=== PATIENT | male | born 1965 | race Caucasian/White ===

== ENCOUNTER 2017-11-22 01:37 | Inpatient (IN) | payer OTHER ==
[~2017-11-22] VITALS: Ht 172.7 cm; Wt 105.8 kg
[~2017-11-22 01:37] MED LIST: LISINOPRIL20 M1 PO; PRAZOSIN HCL1 M1 PO; TRINTELLIX5 MG PO; ZYRTEC10 M3 PO
[2017-11-22] MEDS ORDERED: ASPIRIN EC81 M1 PO (09:11)
[2017-11-22] MEDS ORDERED: MS CONTIN15 M3 PO (09:11)
[2017-11-22] MEDS ORDERED: DILAUDID2 M1 PO (09:11)
[2017-11-22] MEDS ORDERED: ASPIRIN81 M4 PO (09:11)
--- NOTE | 2017-11-22 09:27 | Patient Discharge Instructions ---
Discharge Instructions General Discharge Information You were seen/treated for: osteoarthritis right hip You had these procedures: total hip replacement with drain placement Watch for these problems: Increasing redness, warmth or swelling Drainage of any type from incision Inability to bear weight on operative leg Persistent nausea and vomiting Fever greater than 101.5 degrees Call Surgeon to remove: Julienne Do not soak the wound: No Daily wet to dry dressings: No No bath, but you may shower: Yes (keep wound clean and dry) Other wound care: Please keep wound clean and dry. No ointments or lotions of any type on or near incision. Your dressing will be changed by your nurse on the second day after your surgery. Daily dry dressing changes are recommended each day thereafter. Do not soak your wound- no tub baths/swimming. You may shower 48hr after surgery. Special Instructions: Miralax each day. Discontinue this medication if you develop loose stool or diarrhea. If you wish to continue this medication, it is available over the counter. If Aspirin: You are taking this medication to help prevent blood clot formation. Please take with food to protect your stomach lining. Please take as directed. Constipation: Pain medication can cause constipation. It is recommended that you take Colace and you are unable to move your bowels or unable to pass gas and are developing bloating, nausea, or vomiting as a result, please contact your doctor. Coumadin (warfarin): You are taking this medication to help prevent the development of blood clots. The daily dose is subject to change. It is based on labwork called INR which will be tested at a minimum of two times per week. The office will instruct you as to how much Coumadin you are to be taking. Please be sure to have communicated with the office regarding your doses prior to taking. use assistive devices as needed Diet Continue normal diet: Yes Activity Full Activity/No Limits: No (no strenuous activity) Activity Self Limited: Yes Activity Limited to: Weight bear as tolerated Acute Coronary Syndrome Inclusion Criteria At DC or during hospital stay patient has or had the following: ACS DIAGNOSIS No Discharge Core Measures Meds if any: Prescribed or Continued at Discharge NARCISA/ARB if EF <40% No Aspirin No Beta-Milo No Statin No Meds if any: NOT Prescribed or Continued at Discharge No NARCISA/ARB d/t Allergy Exists Congestive Heart Failure Inclusion Criteria At DC or during hospital stay patient has or had the following: CHF DIAGNOSIS No Discharge Core Measures Meds if any: Prescribed or Continued at Discharge Meds if any: NOT Prescribed or Continued at Discharge Cerebrovascular accident Inclusion Criteria At DC or during hospital stay patient has or had the following: CVA/TIA Diagnosis No Discharge Core Measures Meds if any: Prescribed or Continued at Discharge Meds if any: NOT Prescribed or Continued at Discharge Venous thromboembolism Inclusion Criteria VTE Diagnosis No VTE Type NONE VTE Confirmed by (Test) NONE Discharge Core Measures - Per Current guidelines, there needs to be overlap - treatment for the first 5 days of Warfarin therapy. - If discharged on Warfarin prior to 5 days of - overlap therapy, the patient will need to be - assessed for post discharge needs including - *Post discharge parental anticoagulation - *Warfarin and/or parental anticoagulation education - *Follow up date to check INR post discharge At least 5 days overlap therapy as Inpatient No Meds if any: Prescribed or Continued at Discharge Note: Overlap Therapy is Warfarin and Anticoagulant Meds if any: NOT Prescribed or Continued at Discharge
[2017-11-22] MEDS ORDERED: PROTONIX20 M1 PO (09:40)
[2017-11-22] MEDS ORDERED: MIRALAX17 G1 PO (09:40)
[2017-11-22] MEDS ORDERED: COLACE100 M1 PO (09:40)
--- NOTE | 2017-11-22 09:51 | Surg Short-stay <48hrs Dis Sum ---
See Addendum Visit Information Visit Dates Admission Date: 11/22/17 Discharge Date: 11/23/17 Surgical Short Stay DC Summary Admission Diagnosis: right hip osteoarthritis Final Diagnosis: right hip osteoarthritis Procedure(s): right total hip arhtroplasty Summary/Significant Findings: 52 y/o male S/P right JACKI 11/22/[address] Shrestha. Patient tolarated the procedure well and was transferred to PACU for short postop stay. He had an interoperative blood loss of approx 600cc. A drain was placed for prevention of hematoma. He was transferred to a general surgical floor. His diet was advanced and tolerated. His vital signs remained stable and within normal limits. His pain was controlled with po medications. He voided spontaneously. He was evaluated and treated by physical therapy. He was deemed appropriate for discharge to home with [facility]. Condition at Discharge: stable Discharge Disposition: home health services Discharge instructions provided to patient/family: Yes Post discharge follow-up plan: follow-up with office in 6 weeks Copies to: Yousif Shrestha MD
--- NOTE | 2017-11-22 11:35 | RADIOLOGY REPORT ---
EXAMINATION: XR HIP, RIGHT CLINICAL INFORMATION: Patient in PACU. Right hip osteoarthritis. Postoperative assessment status post right hip arthroplasty. COMPARISON: None TECHNIQUE: Two views of the right hip. FINDINGS: Evaluation on the lateral view is limited due to overlapping soft tissues. The hip joint is not adequately visualized on the lateral view. On the images available, alignment of the total right hip arthroplasty is anatomic with no evidence of hardware failure or ely shoshone bone fracture seen. A soft tissue drain is in place and some subcutaneous emphysema is noted. IMPRESSION: Anatomic alignment of the total right hip arthroplasty is seen with no definite hardware failure or ely shoshone bone fracture seen.
[2017-11-22 12:00] VITALS: BP 90/60
--- NOTE | 2017-11-22 12:41 | Admission Core Measures ---
Acute Coronary Syndrome (CM) ACS Core Measures Acute Coronary Syndrome Diagnosis No Congestive Heart Failure (NEW) CHF Core Measures Congestive Heart Failure Diagnosis No Cerebrovascular Accident (NEW) CVA Core Measures CVA/TIA Diagnosis No Venous Thromboembolism VTE Core Benita (View Protocol) VTE Risk Factors Surgery No Mechanical VTE Prophylaxis d/t N/A MechProphylax Ordered No VTE Pharm Prophylaxis d/t NA PharmProphylax ordered Problem List As ranked by this Provider includes Assessment & Plan 1. Unilateral primary osteoarthritis, right hip HOME MEDS Home Med List Aspirin (Ecotrin*) 81 MG TABLET.DR 1 TAB PO BID CLOT PREVENTION Cetirizine HCl (Zyrtec) 10 MG TABLET 1 TAB PO DAILY ALLERGIES (Reported) Docusate Sodium (Colace) 100 MG CAPSULE 1 CAP PO BID PREVENT CONSTIPATION Hydromorphone HCl (Dilaudid) 2 MG TABLET 1-2 TAB PO Q4-6 PRN PRN PAIN Lisinopril 20 MG TABLET 1 TAB PO DAILY BP (Reported) Morphine Sulfate (Ms Contin) 15 MG TABLET.ER 1 TAB PO BID PRN PAIN Pantoprazole Sodium (Protonix) 20 MG TABLET.DR 1 TAB PO DAILY GI PROTECTION Polyethylene Glycol 3350 (Miralax) 17 GRAM POWD.PACK 1 PAC PO DAILY PREVENTION CONSTIPATION Prazosin HCl 1 MG CAPSULE 1 CAP PO QPM BP (Reported) Vortioxetine Hydrobromide (Trintellix) 5 MG TABLET 20 MG PO D DEPRESSION ( Reported)
--- NOTE | 2017-11-22 13:11 | PN- Orthopedic ---
Subjective Subjective: No acute post operative events. Pt hypotensive at present, feels fatigued. Pain controlled. Has been oob with pt, has yet to ambulate. Denies chest pain, shortness of breath and difficulty breathing. Denies nausea and vomitting. Objective Vital Signs and I&Os Vital Signs Date Time Temp Pulse Resp B/P B/P Pulse O2 O2 Flow FiO2 Mean Ox Delivery Rate 11/22 1203 Room Air Room Air 11/22 1200 97.4 57 18 90/60 94 Room Air Intake & Output 11/22 1600 11/22 0811/22 0000 11/21 1600 11/21 0800 11/21 0000 Intake Total Output Total Balance Patient 230 lb Weight Weight Reported by Patient Measurement Method Physical Exam: General: Alert and oriented x3, no acute distress Cards: RRR, s1s2, hr 57 Pulm: CTA bilaterally, non-labored respiratory effort Extremities: Moves all extremities, distal sensation grossly intact. Skin warm and well perfused. DP pulses palpable bilaterally. Bilateral calves soft and non-tender Surgical site: R hip. Dressing intact. Thigh compartment soft. Hemovac to self suction, holding suction, sanguinous Assessment/Plan Assessment/Plan This is a 52 year old male, POD 0, s/p R THR Increase iv fluid rate to 125 cc/hr for bp OOB, wbat PT to re-evaluate. Discharge planning to follow. Continue drain for now, will discuss with DR. Shrestha prior to pull, marino if pt considers going home today Ancef 2g for 2 additional doses for abx ppx asa 81 bid for dvt ppx per Dr. Shrestha Alpwade and jamilah for mechanical ppx Bowel regimen to include colace and miralax scheduled Will re-evaluate after clearance by physical therapy for consideration of discharge to home Core Measures Venous Thromboembolism VTE Risk Factors Surgery No Mechanical VTE Prophylaxis d/t N/A MechProphylax Ordered No VTE Pharm Prophylaxis d/t NA PharmProphylax ordered
--- NOTE | 2017-11-22 13:49 | Operative Report ---
Operative/Inv Procedure Report Surgery Date: 11/22/17 Name of Procedure: Right total hip replacement Pre-Operative Diagnosis: Primary right hip DJD Post-Operative Diagnosis: Same Estimated Blood Loss: 600 Surgeon/Gauge And Instrument Inspector: Fady VELASCO,Yousif Diaz Anesthesia: block Operative/Procedure Note Note: Description of Procedure: The patient was taken to the operating room and positively identified. After induction of spinal anesthesia and administration of appropriate pre-operative antibiotics, the patient was positioned supine on the operating room table and all bony prominences were well padded. After performing a surgical timeout, the right lower extremity was prepped and draped in the usual sterile fashion. A direct anterior approach was made to the right hip. The incision was carried sharply through superficial soft tissues to the level of the fascia. Meticulous hemostasis was maintained with Bovie electocautery. The fascia over the tensor fascia omkar muscle was opened sharply and the interval between the TFL and the sartorius was entered bluntly taking care to stay lateral to the lateral femoral cutaneous nerve. Retractors were placed around the femoral neck and the pericapsular fat was identified. The ascending branches of the lateral femoral circumflex vessels were identified and carefully coagulated. The pericapsular fat and anterior capsule were then resected. A napkin ring osteotomy was performed and the femoral head was removed without difficulty. Attention was then turned to the acetabulum. After appropriate placement of retractors, the acetabulum was exposed. Soft tissue was cleaned from the acetabular margin and notch. Overhanging osteophytes were removed and the teardrop was exposed. The acetabulum was then sequentially reamed to accept a 60 mm Keshav Tritanium hemispherical solid shell. This was impacted into place in the appropriate position and fitted with a 36 mm Trident X3 zero degree polyethylene insert. Attention was then turned to the femur. After performing the appropriate ligament releases, the proximal femur was exposed. It was then sequentially broached to accept a size 5 Keshav Anato stem. This was trialed for leg length and stability. The trial component was removed and the final component was impacted into place. The trunnion was carefully cleaned and fit with a 36 mm, + 2.5 Biolox delta ceramic femoral head. The hip was reduced and put through a full range of motion and found to be stable. The articular space was then irrigated with sterile saline. The periarticular soft tissues were infilitrated with Marcaine. The fascial layer was closed with interrupted #1 vicryl suture and the skin was re-approximated with interrupted 2 -0 vicryl. The skin was closed with a running 3-0 V-Lock suture. Steri-strips and a sterile dressing were applied. The patient was awakened and taken to the recovery room in satisfactory condition.
[2017-11-22 14:55] VITALS: BP 104/60
[2017-11-22 18:59] VITALS: BP 110/64
[2017-11-22 22:16] VITALS: BP 108/66
[2017-11-23 01:20] VITALS: BP 114/62
[2017-11-23 04:28] VITALS: BP 108/58
--- NOTE | 2017-11-23 07:42 | PN- Orthopedic ---
See Addendum Subjective Subjective: Patient voices concerns over starting a new BP medication, Prazosin on Monday that his psychiatrist prescribed for insomina that has a side effect of bleeding. He reports swelling and states pain is controlled. He cleared stairs with PT yesterday. He is tolerating a diet and voiding spontanously. Denies numbness, tingling, dizziness or lightheadedness. Objective Vital Signs and I&Os Vital Signs Date Time Temp Pulse Resp B/P B/P Pulse O2 O2 Flow FiO2 Mean Ox Delivery Rate 11/23 0428 98.3 55 20 108/58 95 Room Air 11/23 0120 98.6 61 20 114/62 94 Room Air 11/22 2216 98.7 66 20 108/66 95 Room Air / 1859 98.9 54 20 110/64 93 Room Air / 1804 60 104/60 05/ 1455 98.3 68 20 104/60 95 Room Air / 1203 Room Air Room Air 11/22 1200 97.4 57 18 90/60 94 Room Air Intake & Output 11/23 0800 11/23 0000 / 1600 / 0800 05/ 0000 11/21 1600 Intake Total 995 615 Output Total 825 350 Balance 170 265 Intake, IV 875 375 Intake, Oral 120 240 Number 0 0 Bowel Movements Output, 375 Drainage Output, Urine 450 350 Patient 233 lb 230 lb Weight Weight Reported by Patient Measurement Method Physical Exam: Gen - resting comofrtably in a chair in nad Cardiac - S1S2, RRR Lungs - CTAB Ext - R hip dressing c/d/i, HV to self suction, 175 cc in last shift, 375 in last 24 hours, moves all extremities, distal motor and sensory intact, DP pulses present, teds in place, no edema or calf tenderness Assessment/Plan Assessment/Plan 52 M POD 1 s/p R THR w/ hv OOB w/ PT, WBAT Keep HV to self suction given high output Regular diet, d/c IVF pending labs Cont pain regimen DVT ppx - asa 81 bid, teds, alps Hold Prazosin Bowel regimen on board F/u labs D/c planning Core Measures Venous Thromboembolism VTE Risk Factors Surgery No Mechanical VTE Prophylaxis d/t N/A MechProphylax Ordered No VTE Pharm Prophylaxis d/t NA PharmProphylax ordered
[2017-11-23 08:00] VITALS: BP 108/78
[2017-11-23 09:44] LABS: ABSOLUTE BASOPHIL COUNT 0 /CUMM (0.0-0.2); ABSOLUTE EOSINOPHIL COUNT 0.1 /CUMM (0.0-0.7); ABSOLUTE GRANULOCYTE CT 7.5 /CUMM (1.4-6.5); ABSOLUTE LYMPH COUNT 2.2 /CUMM (1.2-3.4); ABSOLUTE MONOCYTE COUNT 0.9 /CUMM (0.10-0.60); BASOPHIL % 0.2 % (0.0-2.0); EOSINOPHIL % 0.8 % (0-5); GRANULOCYTE % 70.4 % (42.2-75.2); HEMATOCRIT 37.8 % (42-52); MEAN CORPUSCULAR HGB 30.2 PG (27.0-31.0); MEAN CORPUSCULAR HGB CONC 33.2 G/DL (33.0-37.0); MEAN CORPUSCULAR VOLUME 90.9 FL (80.0-94.0); MEAN PLATELET VOLUME 7.5 FL (7.4-10.4); PLATELET COUNT 236 /CUMM (130-400); RBC DISTRIBUTION WIDTH 13.3 % (11.5-14.5); RED BLOOD CELL CT 4.16 /CUMM (4.70-6.10); WHITE BLOOD CELL COUNT 10.6 /CUMM (4.8-10.8)
[2017-11-23 15:00] VITALS: BP 110/70
== END 2017-11-23 18:15 | disposition home health service (06) | DRG 470 ==
LOC: SDA 01:37 → ENRESERV 10:02 → ENTRNSPT 10:27 → EDTRNSPTSTS 10:52 → EDTRNSPT 10:52 → 2NB 11:00 → CMPTRNSPT 11:16 → ENTRNSPT 11-23 17:36 → EDTRNSPT 11-23 17:53 → EDTRNSPTSTS 11-23 17:53 → CMPTRNSPT 11-23 18:09 → 2NB 11-23 18:15
PROVIDERS: Physician Assistant
PROC: 0SR904A Replacement of Right Hip Joint with Ceramic on Polyethylene Synthetic Substitute, Uncemented, Open Approach (ICD-10-PCS; principal; 2017-11-22)
DX: M16.11 Unilateral primary osteoarthritis, right hip (principal); K76.0 Fatty (change of) liver, not elsewhere classified; M50.23 Other cervical disc displacement, cervicothoracic region; E78.5 Hyperlipidemia, unspecified; G47.33 Obstructive sleep apnea (adult) (pediatric); J45.909 Unspecified asthma, uncomplicated; Z79.82 Long term (current) use of aspirin; Z79.891 Long term (current) use of opiate analgesic; K21.9 Gastro-esophageal reflux disease without esophagitis; K59.09 Other constipation; M54.5 Low back pain; Z98.84 Bariatric surgery status; Z96.642 Presence of left artificial hip joint; Z98.1 Arthrodesis status; Z90.49 Acquired absence of other specified parts of digestive tract
CPT/HCPCS: 2NSBP; 36592; 73502-RT; 82436; 88304; 97110-GO; 97116-GO; 97161-GP; 97530-GO; J0690; J0735; J2405; J2550; J3490; J7042